=== PATIENT | male | born 1950 | race American Indian/Alaskan Native ===

== ENCOUNTER 2017-01-08 08:36 | Emergency (ER) | payer SELFPAY ==
--- NOTE | 2017-01-08 09:17 | Emergency Department Report ---
ED Male HPI - General Chief complaint: Urogenital-Male Stated complaint: CAN NOT URINATE Time Seen by Provider: 01/08/17 09:08 Source: patient Mode of arrival: Ambulatory Limitations: No Limitations - History of Present Illness Initial comments: he is a 66-year-old male with a history of enlarged prostate who presents to easy complaining of inability to urinate since last night. He denies pain in all scrotum swelling or bowel movement irregularities He denies status/assessment this is vomiting/abdominal pain - Related Data Previous Rx's Medication Instructions Recorded Last Taken Type Ciprofloxacin HCl [Ciprofloxacin 500 mg PO Q12HR #14 tab 01/08/17 Unknown Rx TAB] Ibuprofen [Motrin] 800 mg PO Q8HR PRN #30 tablet 01/08/17 Unknown Rx Allergies Allergy/AdvReac Type Severity Reaction Status Date / Time No Known Allergies Allergy Unverified 01/08/17 08:51 ED Review of Systems ROS: Stated complaint: CAN NOT URINATE Other details as noted in HPI Constitutional: denies: chills, fever Eyes: denies: eye pain, eye discharge, vision change ENT: denies: ear pain, throat pain Respiratory: denies: cough, shortness of breath, wheezing Cardiovascular: denies: chest pain, palpitations Endocrine: no symptoms reported Gastrointestinal: denies: abdominal pain, nausea, diarrhea Genitourinary: denies: urgency, dysuria Musculoskeletal: denies: back pain, joint swelling, arthralgia Skin: denies: rash, lesions Neurological: denies: headache, weakness, paresthesias Psychiatric: denies: anxiety, depression Hematological/Lymphatic: denies: easy bleeding, easy bruising ED Past Medical Hx - Past Medical History Previous Medical History?: No - Surgical History Past Surgical History?: Yes Additional Surgical History: Left inquinal hernia surgery - Social History Smoking Status: Never Smoker Substance Use Type: None - Medications Home Medications: Home Medications Medication Instructions Recorded Confirmed Last Taken Type Ciprofloxacin HCl [Ciprofloxacin 500 mg PO Q12HR #14 tab 01/08/17 Unknown Rx TAB] Ibuprofen [Motrin] 800 mg PO Q8HR PRN #30 tablet 01/08/17 Unknown Rx ED Physical Exam - General Limitations: No Limitations General appearance: alert, in no apparent distress - Head Head exam: Present: atraumatic, normocephalic - Eye Eye exam: Present: normal appearance - ENT ENT exam: Present: mucous membranes moist - Neck Neck exam: Present: normal inspection - Respiratory Respiratory exam: Present: normal lung sounds bilaterally. Absent: respiratory distress - Cardiovascular Cardiovascular Exam: Present: regular rate, normal rhythm. Absent: systolic murmur, diastolic murmur, rubs, gallop - GI/Abdominal GI/Abdominal exam: Present: soft, normal bowel sounds - Rectal Rectal exam: Present: deferred - exam: Present: normal inspection, circumcision. Absent: testicular tenderness, urethral discharge, scrotal swelling External exam: Present: normal external exam. Absent: erythema, swelling, lesions, lacerations - Extremities Exam Extremities exam: Present: normal inspection, full ROM - Back Exam Back exam: Present: normal inspection, full ROM. Absent: CVA tenderness (R), CVA tenderness (L) - Neurological Exam Neurological exam: Present: alert, oriented X3 - Psychiatric Psychiatric exam: Present: normal affect, normal mood - Skin Skin exam: Present: warm, dry, intact, normal color. Absent: rash ED Course Vital Signs 01/08/17 01/08/17 01/08/17 08:51 09:48 12:09 Temperature 97.6 F Pulse Rate 106 H Respiratory 20 20 18 Rate Blood Pressure 156/84 O2 Sat by Pulse 97 99 Oximetry 01/08/17 01/08/17 01/08/17 12:10 12:15 12:43 Temperature Pulse Rate 88 Respiratory 18 18 Rate Blood Pressure 159/77 O2 Sat by Pulse 98 Oximetry ED Medical Decision Making - Lab Data Result diagrams: 01/08/17 12:36 01/08/17 12:36 - Radiology Data Radiology results: report reviewed, image reviewed CT ABDOMEN AND PELVIS WITHOUT CONTRAST INDICATION: Inability to urinate. COMPARISON: None similar. FINDINGS: Noncontrast abdomen and pelvis CT performed. LUNG BASES: Air-filled distal esophageal wall prominence/thickening, not excluded for gastroesophageal reflux and/or hiatal hernia, amongst others. ABDOMEN: Please note that sensitivity to detect small visceral lesions is limited due to the absence of intravenous or oral contrast. However, grossly unremarkable unenhanced liver, spleen, gallbladder, pancreas, left adrenal, nonaneurysmal abdominal aorta with few atherosclerotic calcifications and IVC. Approximately 2 cm right adrenal adenoma. Nonopacified GI tract evaluation limited, though grossly nonobstructive. Normal appendix. Small fat containing umbilical hernia with a transverse neck of 1 cm. Kidneys demonstrate no radiopaque intrarenal calculi. Slight nonspecific bilateral perinephric stranding. Mild pelvicaliectasis/hydronephrosis and ureteral prominence, left more than right, extending into the pelvis. PELVIS: Approximately 7 cm AP x 8.5 cm transverse, mildly heterogeneous prostate with few small calcifications impresses upon the bladder base and possibly to some extent along the distal ureters that are difficult to accurately track. Grossly unremarkable remainder urinary bladder, rising into the lower abdomen with slight surrounding fat stranding. Unremarkable rectosigmoid. No free fluid or significant adenopathy. Small, approximately 1.6 cm fat containing left inguinal hernia. Moderate to severe L5-S1 disc degeneration with narrowing, vacuum phenomenon and spurring. Mild L4-L5 disc narrowing as well. Right more than left SI joint degenerative spurring. Additional multilevel spinal degenerative spurring, more so lower thoracic. L5-S1 bilateral facet arthropathy also noted. CONCLUSION: 1. Markedly enlarged prostate, as detailed above with possible mild compression of the distal ureters and resultant back pressure, left more than right, as described above. Urology correlation suggested. 2. Few other incidental findings, as above. Thank you for the opportunity to participate in this patient's care. Transcribed By: RS Dictated By: JEAN MARIE TORREZ MD Electronically Authenticated By: JEAN MARIE TORREZ MD Signed Date/Time: 01/08/17 1118 - Medical Decision Making 66-year-old male presents with urinary retention due to enlarged prostate ED course: CT of the abdomen and pelvis ordered, Urinalysis ordered. 1. CT scan reveals enlarged prostate-See report above 2. Discussed CT findings with the patient. CBC CMP and urinalysis within normal limits. Mildly elevated white count 3. Patient received 250 mg dose of Rocephin for prophylaxis and pain medication while in the ED. 4. Patient could not urinate due to enlarged prostate. I placed Coude Haines catheter prior to discharge. 5. I discussed with patient and Haines catheter could not stay in for long, I discussed twice a day urine bag change. 6. I discussed with patient to follow up with urology as soon as possible within 1 or 2 days. 7. I discussed the patient had a Haines catheter cannot stay in for long due to risk of infection. He was sent home on a prescription for antibiotics and pain meds. Patient verbalized understanding he needed to go to see a urologist as soon as possible. I discussed the patient to return to the ED if he had any other problems with his Haines or worsening symptoms. Patient was alert and oriented 3 was in no acute distress. - Differential Diagnosis 1. Prostatitis 2. Urinary retention 3. Benign Prostatic hyperplasia Critical care attestation.: If time is entered above; I have spent that time in minutes in the direct care of this critically ill patient, excluding procedure time. ED Disposition Clinical Impression: Enlarged prostate with urinary retention Disposition: TO HOME OR SELFCARE Is pt being admited?: No Does the pt Need Aspirin: No Condition: Stable Instructions: Urinary Retention in Men (ED) Additional Instructions: Follow-up with outside Medical Center in 2-3 days to see urologist. Follow-up with urologist as per provided. Return to the ED immediately if symptoms worsen. Change your Haines bag twice a day Prescriptions: Ciprofloxacin HCl [Ciprofloxacin TAB] 500 mg PO Q12HR #14 tab Ibuprofen [Motrin] 800 mg PO Q8HR PRN #30 tablet PRN Reason: Pain Referrals: PRIMARY CARE, [Primary Care Provider] - 3-5 Days SHAVON NORWOOD MD [Staff Physician] - 3-5 Days LIAM MCCURDY MD [Staff Physician] - 3-5 Days [facility] [Outside] - 3-5 Days ([facility] Address: [address] [place] [id number] ) Forms: Accompanied Note, Work/School Release Form(ED) Time of Disposition: 15:05
--- NOTE | 2017-01-08 11:23 | Cat Scan Report ---
CT ABDOMEN AND PELVIS WITHOUT CONTRAST INDICATION: Inability to urinate. COMPARISON: None similar. FINDINGS: Noncontrast abdomen and pelvis CT performed. LUNG BASES: Air-filled distal esophageal wall prominence/thickening, not excluded for gastroesophageal reflux and/or hiatal hernia, amongst others. ABDOMEN: Please note that sensitivity to detect small visceral lesions is limited due to the absence of intravenous or oral contrast. However, grossly unremarkable unenhanced liver, spleen, gallbladder, pancreas, left adrenal, nonaneurysmal abdominal aorta with few atherosclerotic calcifications and IVC. Approximately 2 cm right adrenal adenoma. Nonopacified GI tract evaluation limited, though grossly nonobstructive. Normal appendix. Small fat containing umbilical hernia with a transverse neck of 1 cm. Kidneys demonstrate no radiopaque intrarenal calculi. Slight nonspecific bilateral perinephric stranding. Mild pelvicaliectasis/hydronephrosis and ureteral prominence, left more than right, extending into the pelvis. PELVIS: Approximately 7 cm AP x 8.5 cm transverse, mildly heterogeneous prostate with few small calcifications impresses upon the bladder base and possibly to some extent along the distal ureters that are difficult to accurately track. Grossly unremarkable remainder urinary bladder, rising into the lower abdomen with slight surrounding fat stranding. Unremarkable rectosigmoid. No free fluid or significant adenopathy. Small, approximately 1.6 cm fat containing left inguinal hernia. Moderate to severe L5-S1 disc degeneration with narrowing, vacuum phenomenon and spurring. Mild L4-L5 disc narrowing as well. Right more than left SI joint degenerative spurring. Additional multilevel spinal degenerative spurring, more so lower thoracic. L5-S1 bilateral facet arthropathy also noted. CONCLUSION: 1. Markedly enlarged prostate, as detailed above with possible mild compression of the distal ureters and resultant back pressure, left more than right, as described above. Urology correlation suggested. 2. Few other incidental findings, as above. Thank you for the opportunity to participate in this patient's care.
[2017-01-08] MEDS ORDERED: MORPHINE IV ONE (11:30)
[2017-01-08] MEDS ORDERED: TORADOL IM ONE (11:44)
[2017-01-08] MEDS ORDERED: MORPHINE ONE (11:48)
[2017-01-08] MEDS ORDERED: ASTRAMORPH PF IV ONE (12:04)
[2017-01-08] MEDS ORDERED: TORADOL IV ONE (12:05)
[2017-01-08] MEDS ORDERED: DILAUDID IV ONE (12:10)
[2017-01-08 12:15] LABS: Bilirubin,Urine NEG (Negative); Blood,Urine SM (Negative); Ketones,Urine NEG (Negative); Leukocyte Esterase,Urine NEG (Negative); Nitrite,Urine NEG (Negative); Protein,Urine <15 mg/dL mg/dL (Negative); RBC,Urine < 1.0 /HPF (0.0-6.0); Urobilinogen,Urine < 2.0 mg/dL (<2.0); WBC,Urine < 1.0 /HPF (0.0-6.0)
[2017-01-08 12:47] VITALS: BP 159/77
[2017-01-08 12:59] LABS: Basophils % (Auto) 0.4 % (0.0-1.8); Hemoglobin 15.8 gm/dl (11.8-15.2); Mean Corpuscular HGB Conc 33 % (32-34); Mean Corpuscular Hemoglobin 29 pg (28-32); Mean Corpuscular Volume 88 fl (84-94); Platelet Count 239 K/mm3 (140-440); Red Blood Count 5.49 M/mm3 (3.65-5.03); White Blood Count 13.7 K/mm3 (4.5-11.0)
[2017-01-08 13:19] LABS: Chloride 102.7 mmol/L (98-107); Potassium 4.5 mmol/L (3.6-5.0); Sodium 140 mmol/L (137-145)
[2017-01-08 13:20] LABS: Alanine Aminotransferase 17 units/L (7-56); Albumin 4.7 g/dL (3.9-5); Albumin/Globulin Ratio 1.3 %; Alkaline Phosphatase 57 units/L (35-129); Anion Gap 20 mmol/L; BUN/Creatinine Ratio 10; Blood Urea Nitrogen 10 mg/dL (9-20); Calcium 9.7 mg/dL (8.4-10.2); Carbon Dioxide 22 mmol/L (22-30); Glucose 119 mg/dL (75-100); Total Protein 8.2 g/dL (6.3-8.2)
[2017-01-08] MEDS ORDERED: ROCEPHIN IV ONE (14:46)
[2017-01-08] MEDS ORDERED: XYLOCAINE 1% MPF 5 mL INFILTRATI ONE (14:46)
[2017-01-08] MEDS ORDERED: XYLOCAINE 2% UROJET ONE (19:11)
== END 2017-01-08 15:41 | disposition home or self-care (01) ==
LOC: ED 08:36
DX: N40.1 Benign prostatic hyperplasia with lower urinary tract symptoms (principal); R33.8 Other retention of urine
CPT/HCPCS: 36415; 51701; 74176; 80053; 81001; 85025; 96374; 96375; 99284; J0696; J1885; J2270

== ENCOUNTER 2019-03-07 13:27 | Emergency (ER) | payer SELFPAY ==
[2019-03-07 13:42] VITALS: BP 168/90
[2019-03-07] MEDS ORDERED: IBUPROFEN 600 MG TAB PO ONE ×2 (13:43→13:45)
[2019-03-07] MEDS ORDERED: ACETAMINOPHEN 325 MG TAB PO ONE (13:43)
--- NOTE | 2019-03-07 13:43 | Event Note ---
ED Screening Note ED Screening Note: fever that began yesterday sore throat fatigue headache dry cough no vomiting no diarrhea had the flu vaccine two days ago PMHx BPH no allergies to meds This initial assessment/diagnostic orders/clinical plan/treatment(s) is/are subject to change based on patients health status, clinical progression and re- assessment by fellow clinical providers in the ED. Further treatment and workup at subsequent clinical providers discretion. Patient/guardian urged not to elope from the ED as their condition may be serious if not clinically assessed and managed. Initial orders include: CXR ibuprofen and tylenol given
[2019-03-07] MEDS ORDERED: ACETAMINOPHEN 325 MG TAB ONE (13:45)
--- NOTE | 2019-03-07 14:28 | XRay Report ---
CHEST 2 VIEWS INDICATION / CLINICAL INFORMATION: MAIN: cough, fever PT PRESENTS TO ED WITH COMPLAINT OF FEVER. COMPARISON: None available. FINDINGS: SUPPORT DEVICES: None. HEART / MEDIASTINUM: No significant abnormality. LUNGS / PLEURA: No significant pulmonary or pleural abnormality. No pneumothorax. ADDITIONAL FINDINGS: No significant additional findings. IMPRESSION: 1. No acute findings. Signer Name: Neto Collier MD Signed: 03/07/2019 2:23 PM Workstation Name: [id number]
--- NOTE | 2019-03-07 15:01 | Emergency Department Report ---
ED Fever HPI - General Chief Complaint: Fever Stated Complaint: FEVER Time Seen by Provider: 03/07/19 13:39 - History of Present Illness Initial Comments: pt is a 69 yo male who presents to the ED with a fever that began yesterday. he has associated sore throat, fatigue, headache, dry cough, generalized body aches. he denies any vomiting, diarrhea, CP, SOB, abd pain. he states that he had the flu vaccine two days ago at his PCP office. PMHx BPH. no allergies to meds. ED Review of Systems ROS: Stated complaint: FEVER Other details as noted in HPI Comment: All other systems reviewed and negative ED Past Medical Hx - Past Medical History Previous Medical History?: No - Surgical History Past Surgical History?: Yes Additional Surgical History: Left inquinal hernia surgery - Social History Smoking Status: Never Smoker Substance Use Type: None - Medications Home Medications: Home Medications Medication Instructions Recorded Confirmed Last Taken Type Ciprofloxacin HCl [Ciprofloxacin 500 mg PO Q12HR #14 tab 01/08/17 Unknown Rx TAB] Ibuprofen [Motrin] 800 mg PO Q8HR PRN #30 tablet 01/08/17 Unknown Rx Oseltamivir [Tamiflu] 75 mg PO BID 5 Days #10 cap 03/07/19 Unknown Rx ED Physical Exam - General Limitations: No Limitations - Head Head exam: Present: atraumatic, normocephalic - Eye Eye exam: Present: normal appearance - ENT ENT exam: Present: normal orophraynx, mucous membranes moist, TM's normal bilaterally, normal external ear exam - Respiratory Respiratory exam: Present: normal lung sounds bilaterally. Absent: respiratory distress, wheezes, rales, rhonchi, stridor, chest wall tenderness, accessory muscle use, decreased breath sounds, prolonged expiratory - Cardiovascular Cardiovascular Exam: Present: regular rate, normal rhythm, normal heart sounds. Absent: systolic murmur, diastolic murmur, rubs, gallop - Neurological Exam Neurological exam: Present: alert, oriented X3 - Psychiatric Psychiatric exam: Present: normal affect, normal mood - Skin Skin exam: Present: warm, dry, intact ED Course Vital Signs 03/07/19 03/07/19 03/07/19 13:40 13:45 13:46 Temperature 103.1 F H Pulse Rate 111 H Respiratory 18 18 18 Rate Blood Pressure 168/90 O2 Sat by Pulse 96 Oximetry 03/07/19 14:57 Temperature 100.0 F H Pulse Rate 96 H Respiratory Rate Blood Pressure O2 Sat by Pulse Oximetry ED Medical Decision Making - Lab Data Vital Signs 03/07/19 03/07/19 03/07/19 13:40 13:45 13:46 Temperature 103.1 F H Pulse Rate 111 H Respiratory 18 18 18 Rate Blood Pressure 168/90 O2 Sat by Pulse 96 Oximetry 03/07/19 14:57 Temperature 100.0 F H Pulse Rate 96 H Respiratory Rate Blood Pressure O2 Sat by Pulse Oximetry - Radiology Data Radiology results: report reviewed CXR no acute findings - Medical Decision Making pt is a 69 yo male who presents to the ED with a fever that began yesterday. he has associated sore throat, fatigue, headache, dry cough, generalized body aches. he denies any vomiting, diarrhea, CP, SOB, abd pain. he states that he had the flu vaccine two days ago at his PCP office. PMHx BPH. no allergies to meds. initial vitals with elevated temp and HR which improved upon tylenol and ibuprofen administration. CXR no acute findings. no abnormality on physical examination as documented in chart. Symptoms and examination consistent with influenza. Patient is within the 48-hour range for Tamiflu. Please take medication as prescribed. Please increase your fluid intake over the next several days. May alternate Tylenol and ibuprofen every 4 hours as needed for a fever. May take [id number] cough/cold medication. follow up with a primary care doctor in the next 2-3 days for reexamination. Return to the emergency room for any new or worsening symptoms. - Differential Diagnosis PNA, URI, influenza, pharyngitis, otitis, post vaccine response Critical care attestation.: If time is entered above; I have spent that time in minutes in the direct care of this critically ill patient, excluding procedure time. ED Disposition Clinical Impression: Influenza Disposition: DC-01 TO HOME OR SELFCARE Is pt being admited?: No Does the pt Need Aspirin: No Condition: Stable Instructions: Influenza (ED) Additional Instructions: Please take medication as prescribed. Please increase your fluid intake over the next several days. May alternate Tylenol and ibuprofen every 4 hours as needed for a fever. May take [id number] cough/cold medication. follow up with a primary care doctor in the next 2-3 days for reexamination. Return to the emergency room for any new or worsening symptoms. Prescriptions: Oseltamivir [Tamiflu] 75 mg PO BID 5 Days #10 cap Referrals: your, primary care doctor [Other] - 2-3 Days Time of Disposition: 14:59 Print Language: NAURUAN
== END 2019-03-07 15:29 | disposition home or self-care (01) ==
LOC: ED 13:27
DX: J11.1 Influenza due to unidentified influenza virus with other respiratory manifestations (principal); Z98.890 Other specified postprocedural states; Z79.899 Other long term (current) drug therapy
CPT/HCPCS: 71046